=== PATIENT | female | born 1970 | race Caucasian/White ===

== ENCOUNTER 2016-08-05 20:51 | Emergency (ER) | payer OTHER ==
--- NOTE | 2016-08-05 21:10 | UC ---
Dizzy HPI HPI Summary: MEJIAS x 1.5 months worsening over past 1-2 days. Also becoming more lethargic over the mast 1-2 days and presents to prepared to go to ED if needed. Loss of appetite. Thinks she needs her shunt cleaned out. She fell tonight and hurt her shoulder. Here with [facility]. She follows with a neurologist at [facility]. 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 - History Of Current Complaint Stated Complaint: dizziness, loss of appetite (shunt in head) Time Seen by Provider: 08/05/16 21:08 Hx Last Menstrual Period: 03/20/14 - Allergies/Home Medications Allergies/Adverse Reactions: Allergies Allergy/AdvReac Type Severity Reaction Status Date / Time Iodine Allergy Hives Verified 01/03/15 19:41 Latex Allergy Hives/Diff. Verified 01/03/15 19:41 Breathing/I tching Morphine Allergy Hives/Diff. Verified 01/03/15 19:41 Breathing/I tching Prochlorperazine Allergy Muscle Ache Verified 01/03/15 19:41 [From Compazine] Metoclopramide [From Reglan] AdvReac Agitation Verified 01/03/15 19:41 Sulfa Antibiotics AdvReac Vomiting Verified 01/03/15 19:41 PMH/Surg Hx/FS Hx/Imm Hx Previously Healthy: No - [employer] shunt Endocrine History Of: Denies: Diabetes, Thyroid Disease Cardiovascular History Of: Denies: Cardiac Disorders, Hypertension Respiratory History Of: Reports: Asthma - Surgical History Surgical History: Yes Surgery Procedure, Year, and Place: brain X7, Shunt placement 1986 CSF; kidney stones X4, gallbladder, X2 hernia, 1 c-sect, hysterectomy 2014, D&C several laparoscopies, tonsillectomy - Family History Known Family History: Positive: Hypertension - Social History Alcohol Use: None Substance Use Type: None Smoking Status (MU): Never Smoked Tobacco Household Exposure Type: Cigarettes - Immunization History Most Recent Tetanus Shot: MAR 2014, TWO WEEKS AGO Review of Systems Constitutional: Fatigue Skin: Negative Eyes: Negative ENT: Negative Respiratory: Negative Cardiovascular: Negative Gastrointestinal: Negative Genitourinary: Negative Motor: Negative Neurovascular: Negative Musculoskeletal: Negative Neurological: Headache, Weakness Psychological: Negative All Other Systems Reviewed And Are Negative: Yes Physical Exam Triage Information Reviewed: Yes Completion Of Physical Exam Limited Due To: Altered Mental Status Appearance: No Pain Distress, Well-Nourished, Ill-Appearing Vital Signs Reviewed: Yes ENT Exam: Normal - + photophobia ENT: Positive: TMs normal Neck exam: Normal Neck: Positive: Supple, Nontender, No Lymphadenopathy. Negative: Nuchal Rigidity Respiratory Exam: Normal Respiratory: Positive: Lungs clear, Normal breath sounds, No respiratory distress, No accessory muscle use Cardiovascular Exam: Normal Cardiovascular: Positive: RRR, No Murmur, Pulses Normal, Brisk Capillary Refill Abdomen Description: Positive: Nontender, Soft Musculoskeletal Exam: Normal Neurological: Positive: Alert, Lethargic, Other: - slow response, oriented to place, she is not accurate in date of 07/28 and "Mother's Day", oriented to President Tr[employer]. Psychological Exam: Normal Skin Exam: Normal Dizzy Course/Dx - Course Course Of Treatment: They decline ambulance and Anderson wishes to drive her to [facility] ED, AMA. forms signed. - Differential Dx/Diagnosis Differential Diagnosis/HQI/PQRI: Metabolic Abnormality, Vasovagal Reaction, Other - [employer] shunt obstruction. Provider Diagnoses: [employer] shunt, malfunction, lethary, MEJIAS - Physician Notifications Discussed Patient Care With: Dr Adair at [facility], reviewed case. will Fax records. Time Discussed With Above Provider: 21:25 Discharge - Discharge Plan Condition: Guarded Disposition: AGAINST MEDICAL ADVICE
[2016-08-05 21:23] VITALS: BP 120/79
== END 2016-08-05 21:40 | disposition left against medical advice (07) ==
LOC: UCCORT 20:51
DX: T85.09XA Other mechanical complication of ventricular intracranial (communicating) shunt, initial encounter (principal); R51 Headache; R53.83 Other fatigue; Z88.5 Allergy status to narcotic agent; Z88.2 Allergy status to sulfonamides; Z88.8 Allergy status to other drugs, medicaments and biological substances; Z91.041 Radiographic dye allergy status; Z91.040 Latex allergy status; J45.909 Unspecified asthma, uncomplicated; Z77.22 Contact with and (suspected) exposure to environmental tobacco smoke (acute) (chronic)
CPT/HCPCS: 99212; G0463

== ENCOUNTER 2016-12-26 20:06 | Emergency (ER) | payer OTHER ==
[2016-12-26 21:08] VITALS: BP 106/73
[2016-12-26] MEDS ORDERED: HYDROcodone/ACETAMIN 5-325 MG* 1 TAB PO ONE (21:22)
--- NOTE | 2016-12-26 21:33 | UC ---
Back Pain HPI - HPI Summary HPI Summary: 2.5 WEEKS OF BACK PAIN. BEGAN IN LOW BACK MOVED TO MID BACK WITH SPASMS AROUND SPINE. BEGAN 3 WEEKS AGO WHEN MOVING BIRD FOOD. HAS APPOINTMENT WITH [facility] TOMORROW AT 11AM BUT PAIN IN BACK IS GETTING MORE SEVERE. A COUPLE OF DAYS AGO TOOK [facility] THAT WAS LEFT OVER FROM DENTAL APPOINTMENT AND IT GAVE SOME RELIEF. - History of Current Complaint Chief Complaint: UCBackPain Stated Complaint: BACK ISSUE Time Seen by Provider: 12/26/16 21:12 Hx Obtained From: Patient Hx Last Menstrual Period: 03/20/14 Onset/Duration: Gradual Onset, Lasting Weeks, Worse Since - PROGRESSIVE Timing: Intermittent Severity Initially: Mild Severity Currently: Moderate Back Pain: Radiates To - INTERMITTENT TINGLING IN LEGS AND ARMS Character: Spasmodic Aggravating: Movement, Lifting, Bending Alleviating: Rest, Position, OTC Meds Associated Signs And Symptoms: Positive: Tingling - INTERMITTENT LEGS AND ARMS. Negative: Swelling, Redness, Bruising, Fever, Weakness, Numbness, Abdominal Pain, Flank Pain, Bladder Incontinence, Bowel Incontinence, Weight Loss, Pain with Weight Bearing Related History: Previous Back Injury - Risk Factors AAA Risk Factors: Negative TAD Risk Factors: Negative Cauda Equina Risk Factors: Negative Epidural Abscess Risk Factors: Negative - Allergies/Home Medications Allergies/Adverse Reactions: Allergies Allergy/AdvReac Type Severity Reaction Status Date / Time Iodine Allergy Hives Verified 12/26/16 20:52 Latex Allergy Hives/Diff. Verified 12/26/16 20:52 Breathing/I tching Morphine Allergy Hives/Diff. Verified 12/26/16 20:52 Breathing/I tching Prochlorperazine Allergy Muscle Ache Verified 12/26/16 20:52 [From Compazine] Metoclopramide [From Reglan] AdvReac Agitation Verified 12/26/16 20:52 Sulfa Antibiotics AdvReac Vomiting Verified 12/26/16 20:52 Home Medications: Home Medications ALPRAZolam TAB* [Xanax TAB*] 1 tab BID PRN 12/26/16 [History Confirmed 12/26/16] Temazepam CAP* [Restoril CAP*] 1 tab BEDTIME 12/26/16 [History Confirmed ] PMH/Surg Hx/FS Hx/Imm Hx Previously Healthy: Yes - Surgical History Surgical History: Yes Surgery Procedure, Year, and Place: brain X7, Shunt placement 1986 CSF; kidney stones X4, gallbladder, X2 hernia, 1 c-sect, hysterectomy 2014, D&C several laparoscopies, tonsillectomy - Family History Known Family History: Positive: Hypertension - Social History Occupation: Works From/At Home Lives: With Family Alcohol Use: None Substance Use Type: None Smoking Status (MU): Never Smoked Tobacco Household Exposure Type: Cigarettes - Immunization History Most Recent Influenza Vaccination: NONE 2016 Most Recent Tetanus Shot: MAR 2014, TWO WEEKS AGO Review of Systems Constitutional: Negative Skin: Negative Eyes: Negative ENT: Negative Respiratory: Negative Cardiovascular: Negative Gastrointestinal: Negative Genitourinary: Negative Motor: Negative Neurovascular: Negative Musculoskeletal: Arthralgia, Myalgia Neurological: Negative Psychological: Negative Is Patient Immunocompromised?: No All Other Systems Reviewed And Are Negative: Yes Physical Exam Triage Information Reviewed: Yes Appearance: Well-Appearing, Well-Nourished, Pain Distress Vital Signs: Initial Vital Signs Temp 96.4 F 12/26/16 20:57 Pulse 87 12/26/16 20:57 Resp 18 12/26/16 20:57 BP 106/73 12/26/16 20:57 Pulse Ox 100 12/26/16 20:57 Vital Signs Reviewed: Yes Eye Exam: Normal ENT Exam: Normal ENT: Positive: Normal ENT inspection Dental Exam: Normal Neck exam: Normal Neck: Positive: Supple, Nontender, No Lymphadenopathy. Negative: Nuchal Rigidity, Tenderness @ Respiratory Exam: Normal Respiratory: Positive: Chest non-tender, Lungs clear, Normal breath sounds, No respiratory distress, No accessory muscle use Cardiovascular Exam: Normal Cardiovascular: Positive: RRR, No Murmur, Pulses Normal Abdominal Exam: Normal Musculoskeletal: Positive: Strength Intact, ROM Intact, No Edema, Other: - PALPABLE MUSCLE SPASMS R>L PARASPINAL MUSCLES MID BACK Neurological Exam: Normal Psychological Exam: Normal Skin Exam: Normal Back Pain Course/Dx - Differential Dx/Diagnosis Differential Diagnosis/HQI/PQRI: Strain, Sprain Provider Diagnoses: MIDBACK PARASPINAL MUSCLE SPASMS Discharge - Discharge Plan Condition: Stable Disposition: HOME Patient Education Materials: Muscle Spasm (ED), Back Pain (ED) Referrals: Puja Boykin NP [Primary Care Provider] - Additional Instructions: PHYSICAL THERAPY REFERRAL: You have been prescribed physical therapy. Treatments may include stretching, exercise, application of heat or cold, and other modalities. After an injury, PT can reduce swelling and pain. In recovery, PT is used to restore mobility and strength. Your specific treatment goals are: __x___ Reduction of Swelling (EGS, US, ice as needed) ___x__ Pain Reduction (EGS, US, ice as needed) ___x__ TENS Pack Fitting and Instruction Wound Hydrotherapy __x___ Preservation of Mobility __x___ Roman Catholic of Mobility ___x__ Strength Roman Catholic __x___ Work or Sports Hardening This instruction sheet also serves as your PHYSICAL THERAPY REFERRAL! Please take it with you to the therapist, so he/she will be aware of your diagnosis and treatment plan. You may see the physical therapist of your choice for these treatments, but may wish to check with your insurance to be sure the provider you select is covered. It's important to see the doctor to whom you have been referred for follow up.
== END 2016-12-26 21:40 | disposition home or self-care (01) ==
LOC: UCCORT 20:06
DX: M62.830 Muscle spasm of back (principal); Z88.5 Allergy status to narcotic agent; Z88.2 Allergy status to sulfonamides; Z91.040 Latex allergy status
CPT/HCPCS: 99211; G0463

== ENCOUNTER 2017-07-13 11:30 | Emergency (ER) | payer OTHER ==
[2017-07-13 12:32] VITALS: BP 117/70
--- NOTE | 2017-07-13 12:43 | UC ---
Respiratory Complaint HPI - HPI Summary HPI Summary: sick for a month now seen pcp had bilateral ear infection on clarithramycin now took tylenol otc with some relief. fever and chills but no temp very vague about symptoms and treatment today but fatigued and not eating much now dont remember if she was swabbed for flu or not she told nurse ibuprofen but said he bought tylenol - History of Current Complaint Chief Complaint: UCGeneralIllness Stated Complaint: CONGESTION, (JESSICA) EAR COMPLAINT Time Seen by Provider: 07/13/17 12:34 Hx Obtained From: Patient Hx Last Menstrual Period: 03/20/14 ?: No Onset/Duration: Lasting Weeks Timing: Constant Severity Initially: Moderate Pain Intensity: 4 Character: Cough: Nonproductive Associated Signs And Symptoms: Positive: Chills, URI, Nasal Congestion - Risk Factors Tuberculosis Risk Factors: Negative - Allergies/Home Medications Allergies/Adverse Reactions: Allergies Allergy/AdvReac Type Severity Reaction Status Date / Time iodine Allergy Hives Verified 07/13/17 12:52 latex Allergy Hives Verified 07/13/17 12:52 morphine Allergy Hives Verified 07/13/17 12:52 metoclopramide [From Reglan] AdvReac Agitation Verified 07/13/17 12:52 prochlorperazine AdvReac Muscle Ache Verified 07/13/17 12:52 [From Compazine] Sulfa (Sulfonamide AdvReac Vomiting Verified 07/13/17 12:52 Antibiotics) Home Medications: Home Medications Acetaminophen [Acetaminophen Extra Strength] 1,000 mg PO ONCE PRN 07/13/17 [ History Confirmed 07/13/17] Cholecalciferol TAB* [Vitamin D TAB*] 1,000 unit PO DAILY 07/13/17 [History Confirmed 07/13/17] Magnesium 30 mg PO DAILY 07/13/17 [History Confirmed 07/13/17] Vitamin B Complex TAB* [B Complex-50*] 1 tab PO DAILY 07/13/17 [History Confirmed 07/13/17] PMH/Surg Hx/FS Hx/Imm Hx Previously Healthy: Yes Endocrine History: Dyslipidemia GI/ History: Gastroesophageal Reflux Psychological History: Anxiety - Surgical History Surgical History: Yes Surgery Procedure, Year, and Place: brain X7, Shunt placement 1986 CSF; kidney stones X4, gallbladder, X2 hernia, 1 c-sect, hysterectomy 2015, D&C several laparoscopies, tonsillectomy - Family History Known Family History: Positive: Hypertension - Social History Alcohol Use: Rare Substance Use Type: None Smoking Status (MU): Never Smoked Tobacco Household Exposure Type: Cigarettes - Immunization History Most Recent Influenza Vaccination: NONE 2016 Most Recent Tetanus Shot: MAR 2014, TWO WEEKS AGO Review of Systems Constitutional: Chills, Fatigue Skin: Negative Eyes: Negative ENT: Ear Ache - jessica, Sinus Congestion Respiratory: Cough - nonprod Cardiovascular: Negative Gastrointestinal: Negative Genitourinary: Negative Motor: Negative Musculoskeletal: Negative Is Patient Immunocompromised?: No All Other Systems Reviewed And Are Negative: Yes Physical Exam Triage Information Reviewed: Yes Appearance: Ill-Appearing Vital Signs: Initial Vital Signs Temp 97.5 F 07/13/17 12:25 Pulse 81 07/13/17 12:25 Resp 16 07/13/17 12:25 BP 117/70 07/13/17 12:25 Pulse Ox 98 07/13/17 12:25 Vital Signs Reviewed: Yes Eye Exam: Normal ENT: Positive: Pharyngeal erythema, Nasal congestion, TM bulging, TM red - right left with cerumen impaction, Sinus tenderness Respiratory Exam: Normal Cardiovascular Exam: Normal Musculoskeletal Exam: Normal Neurological Exam: Normal Psychological Exam: Normal Skin Exam: Normal UC Diagnostic Evaluation - Laboratory O2 Sat by Pulse Oximetry: 98 Respiratory Course/Dx - Course Course Of Treatment: influenza swab order placed - negative. jessica ear pain - right otitis media present. IM rocphin ordered. increase fluid intake daily to prevent dehydration. stop current abx and start new abx tomorrow - take with food to reduce gi upset. if symptoms not resolving f/u pcp - Differential Dx/Diagnosis Differential Diagnosis/HQI/PQRI: Sinusitis Provider Diagnoses: otitis media right ear Discharge - Sign-Out/Discharge Documenting (check all that apply): Discharge - Discharge Plan Condition: Fair Disposition: HOME Prescriptions: DOXYcycline CAP(*) [DOXYcycline 100MG CAP(*)] 100 mg PO BID 10 Days #20 cap Patient Education Materials: Ear Infection (ED) Referrals: Puja Boykin NP [Primary Care Provider] - 1 Week - Billing Disposition and Condition Condition: FAIR Disposition: HOME
[2017-07-13] MEDS ORDERED: cefTRIAXone VIAL(*) 1,000 MG VIAL IM ONE (13:10)
[2017-07-13] MEDS ORDERED: Lidocaine 1% MPF* 2 ML VIAL ONE (13:17)
== END 2017-07-13 13:50 | disposition home or self-care (01) ==
LOC: UCCORT 11:30
DX: H66.91 Otitis media, unspecified, right ear (principal); Z88.5 Allergy status to narcotic agent; Z88.2 Allergy status to sulfonamides; Z88.8 Allergy status to other drugs, medicaments and biological substances; Z91.048 Other nonmedicinal substance allergy status
CPT/HCPCS: 87502; 96372; 99212; G0463; J0696

== ENCOUNTER 2017-08-17 18:29 | Emergency (ER) | payer OTHER ==
[2017-08-17 19:28] VITALS: BP 122/80
--- NOTE | 2017-08-17 19:45 | UC ---
Knee Pain HPI - HPI Summary HPI Summary: Hit left knee on a trailer hitch 9 days ago. Had an xray. Cortisone shot was very helpful. - History of Current Complaint Chief Complaint: UCLowerExtremity Stated Complaint: LEFT KNEE PAIN Time Seen by Provider: 08/17/17 19:38 Hx Obtained From: Patient Hx Last Menstrual Period: 03/20/14 Onset/Duration: Sudden Onset, Lasting Days - 9, Still Present Severity Initially: Severe Severity Currently: Severe Pain Intensity: 8 Character: Sharp, Burning Aggravating Factor(s): Movement, Weight Bearing, Other - Ice feels like it is burning. Alleviating Factor(s): Heat Associated Signs And Symptoms: Positive: Tingling Able to Bear Weight: Yes - Allergies/Home Medications Allergies/Adverse Reactions: Allergies Allergy/AdvReac Type Severity Reaction Status Date / Time iodine Allergy Hives Verified 08/17/17 19:32 latex Allergy Hives Verified 08/17/17 19:32 morphine Allergy Hives Verified 08/17/17 19:32 doxycycline AdvReac Unknown pt does Verified 08/17/17 19:32 not remember/made her sick metoclopramide [From Reglan] AdvReac Agitation Verified 08/17/17 19:32 prochlorperazine AdvReac Muscle Ache Verified 08/17/17 19:32 [From Compazine] Sulfa (Sulfonamide AdvReac Vomiting Verified 08/17/17 19:32 Antibiotics) Home Medications: Home Medications Ibuprofen TAB* [Motrin TAB* 800 MG] 800 mg PO ONCE 08/17/17 [History Confirmed 08/17/17] Montelukast Sodium TAB* [Singulair 10 MG TAB*] 10 mg PO DAILY 08/17/17 [History Confirmed 08/17/17] PMH/Surg Hx/FS Hx/Imm Hx Neurological History: Migraine Other Neurological History: TBI Psychological History: Anxiety, Depression - Surgical History Surgical History: Yes Surgery Procedure, Year, and Place: brain X7, Shunt placement 1986 CSF; kidney stones X4, gallbladder, X2 hernia, 1 c-sect, hysterectomy 2015, D&C several laparoscopies, tonsillectomy - Family History Known Family History: Positive: Hypertension - Social History Occupation: Disabled Lives: Alone - with BF Alcohol Use: Rare Substance Use Type: None Smoking Status (MU): Never Smoked Tobacco Household Exposure Type: Cigarettes - Immunization History Most Recent Influenza Vaccination: NONE 2016 Most Recent Tetanus Shot: MAR 2014, TWO WEEKS AGO Review of Systems Musculoskeletal: Arthralgia - left knee Is Patient Immunocompromised?: No All Other Systems Reviewed And Are Negative: Yes Physical Exam Triage Information Reviewed: Yes Appearance: Well-Appearing, Pain Distress - especially with walking, Obese Vital Signs: Initial Vital Signs Temp 97.6 F 08/17/17 19:21 Pulse 85 08/17/17 19:21 Resp 17 08/17/17 19:21 BP 122/80 08/17/17 19:21 Pulse Ox 98 08/17/17 19:21 Vital Signs Reviewed: Yes Eyes: Positive: Conjunctiva Clear Neck exam: Normal Respiratory Exam: Normal Cardiovascular Exam: Normal Musculoskeletal: Positive: Strength Limited @ - left knee, ROM Limited @ - left knee, Edema @ - Tr to 1+ left pretibial Neurological: Positive: Other: - Hypersensitive to pinprick just distal to the point of trauma over the patellar tendon. Psychological Exam: Normal Skin Exam: Normal Knee Pain Course/Dx - Differential Dx/Diagnosis Differential Diagnosis/HQI/PQRI: Contusion, Sprain, Strain Provider Diagnoses: Nerve contusion, Neuritis. Contusion left knee Discharge - Sign-Out/Discharge Documenting (check all that apply): Discharge/Admit/Transfer - Discharge Plan Condition: Stable Disposition: HOME Prescriptions: predniSONE TAB* [Deltasone TAB*] 20 mg PO DAILY #18 tab Patient Education Materials: Contusion in Adults (ED) Referrals: Puja Boykin NP [Primary Care Provider] - Additional Instructions: Try to double the gabapentin to help with the nerve pain. Nerve contusion pain should gradually resolve. Start the prednisone in the morning. - Billing Disposition and Condition Condition: STABLE Disposition: HOME
== END 2017-08-17 20:05 | disposition home or self-care (01) ==
LOC: UCCORT 18:29
DX: T14.8XXA Other injury of unspecified body region, initial encounter (principal); M79.2 Neuralgia and neuritis, unspecified; W22.8XXA Striking against or struck by other objects, initial encounter; Y93.9 Activity, unspecified; Y92.9 Unspecified place or not applicable; Z88.5 Allergy status to narcotic agent; Z88.2 Allergy status to sulfonamides; Z88.8 Allergy status to other drugs, medicaments and biological substances; Z88.4 Allergy status to anesthetic agent; Z88.1 Allergy status to other antibiotic agents; Z91.041 Radiographic dye allergy status; Z91.040 Latex allergy status
CPT/HCPCS: 99212; G0463